=== PATIENT | male | born 1940 | race Caucasian/White ===

== ENCOUNTER → 2017-01-28 | Outpatient (CLI) | payer MEDICARE, BC ==
[~2017-01-28] MED LIST: REGADENOSON 0.4 MG/5 ML DISP.SYRIN. IV ONE
--- NOTE | 2017-01-28 15:50 | PCVCIMAG ---
APPROVED REPORT Exam: Nuclear Stress Test Indication: CAD Patient Location: Out-Patient Stress Nurse: Anna King RN, FLORENTIN Layton Tech:Susana TALA Whitmore Ht: 5 ft 8 in Wt: 195 lbs BSA: 2.02 m2 HR: 68 bpm BP: 160/75 mmHg BMI: 29.6 Rhythm: SR, INFERIOR T WAVE INVERSION Medical History Medical History: HTN, Hyperlipidemia, Diabetic Noninsulin, CAD Medications: Amlodipine, aspirin, atorvastatin, coreg, plavix, imdur, metformin, nitro SL, altace, ranexa Allergies: PCN, SULFA Cardiac Risk Factors: Age, Tobacco History (Former) Previous Cardiac Procedures: CABG, PCI Pretest Chest Pain Characteristics: No chest pain Exercise History: Indeterminate Meds Held (24 hrs): Coreg, Imdur, Nitro SL RI EXAM: Myocardial Perfusion REST/STRESS Imaging Protocol: Rest Tc-99m/Stress Tc-99m 1 day Resting Data Rest SPECT myocardial perfusion imaging was performed in supine position 45 minutes following the intravenous injection of 11 mCi of Tc-99m Sestamibi. Time of rest injection: 0855 Date: 01/28/2017 Pharmacologic Stress Pharmacologic stress test was performed by injecting Regadenoson 0.4 mg IV push followed by the intravenous injection of 35.1 mCi of Tc-99m Sestamibi. Time of stress injection: 1010 Date: 01/28/2017 Administration Route: IV Administration Site: Right AC Gated Stress SPECT was performed 45 minutes after stress injection. The images were gated to evaluate regional wall motion and calculate left ventricular ejection fraction. Study Quality Study: Good Study Data Post stress, the left ventricular ejection was 44%.. SSS: 22 SRS: 11 SDS: 12 TID = 1.00. Perfusion Large sized area of moderate reversible ischemia involving the mid/apical anterior/anteroseptal left ventricle consistent with a left anterior descending distribution. 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 Wall Motion Moderately decreased left ventricular systolic function. Nuclear Conclusion Large sized area of moderate reversible ischemia involving the mid/apical anterior/anteroseptal left ventricle consistent with a left anterior descending distribution. 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 Post stress, the left ventricular ejection was 44%.. No change since prior study dated September 2013. Interpreted by: Zelalem Mendoza MD Electronically Approved: 01/28/2017 15:27:10 Stress Test Details Stress Test: Pharmacologic stress was paired with low level exercise. Reason for pharmacologic stress test: Physical limitations. HR Resting HR: 68 bpmMax Heart Rate (APMHR): 144 bpm Max HR Achieved: 100 bpmTarget HR (85% APMHR): 122 bpm % of APMHR: 69 Recovery HR: 70 bpm BP Resting BP: 160/75 mmHg Max BP: 144/70 mmHg Recovery BP: 141/78 mmHg ECG Resting ECG: SR with inferior T wave inversion Stress ECG: SR with inferior T wave inversion Recovery ECG: SR with inferior T wave inversion Clinical Reason for Termination: Completed protocol Stress Symptoms: Leg Fatigue, Dyspnea, resolved during recovery Exercise duration: 4 min sec Exercise capacity: 1.6 METs
== END | disposition home or self-care (01) ==
LOC: PCVCIMAG 08:43
PROVIDERS: ATTEND Internal Medicine Cardiovascular Disease
DX: I25.10 Atherosclerotic heart disease of native coronary artery without angina pectoris (principal); I10 Essential (primary) hypertension; E11.9 Type 2 diabetes mellitus without complications; E78.2 Mixed hyperlipidemia; I65.23 Occlusion and stenosis of bilateral carotid arteries; Z90.49 Acquired absence of other specified parts of digestive tract; Z79.82 Long term (current) use of aspirin; Z79.84 Long term (current) use of oral hypoglycemic drugs; Z95.1 Presence of aortocoronary bypass graft; Z79.899 Other long term (current) drug therapy; Z95.5 Presence of coronary angioplasty implant and graft; Z88.0 Allergy status to penicillin; Z88.1 Allergy status to other antibiotic agents; Z87.891 Personal history of nicotine dependence
CPT/HCPCS: 78452; 80061; 93017; A9500; G0463; J2785; 93005

== ENCOUNTER → 2017-10-28 | Outpatient (CLI) | payer MEDICARE, BC | END | disposition home or self-care (01) | LOC: PCVCCLINIC 10:47 | DX: I25.709 Atherosclerosis of coronary artery bypass graft(s), unspecified, with unspecified angina pectoris (principal); I10 Essential (primary) hypertension; I25.5 Ischemic cardiomyopathy; E78.2 Mixed hyperlipidemia; I77.9 Disorder of arteries and arterioles, unspecified; E11.9 Type 2 diabetes mellitus without complications; R06.02 Shortness of breath; R94.31 Abnormal electrocardiogram [ECG] [EKG]; Z95.1 Presence of aortocoronary bypass graft; Z87.891 Personal history of nicotine dependence; Z79.899 Other long term (current) drug therapy; Z79.84 Long term (current) use of oral hypoglycemic drugs; Z79.82 Long term (current) use of aspirin; Z88.0 Allergy status to penicillin | CPT/HCPCS: 80061; 93005; G0463 ==

== ENCOUNTER → 2017-11-30 | Outpatient (CLI) | payer MEDICARE, BC ==
[~2017-11-30] MED LIST changes: +ASPIRIN 325 MG TABLET; +IV NORMAL SALINE 1000ML BAG 1,000 ML; +IV NORMAL SALINE 500ML BAG 500 ML; +NITROGLYCERIN SUBLINGUAL 0.4 MG BOTTLE OF 25. SL; +REGADENOSON 0.4 MG/5 ML DISP.SYRIN. IV; -REGADENOSON 0.4 MG/5 ML DISP.SYRIN. IV ONE
== END | disposition home or self-care (01) ==
LOC: PCVCIMAG 07:51
DX: I25.10 Atherosclerotic heart disease of native coronary artery without angina pectoris (principal); R07.9 Chest pain, unspecified; R06.00 Dyspnea, unspecified; E11.9 Type 2 diabetes mellitus without complications; Z95.1 Presence of aortocoronary bypass graft
CPT/HCPCS: 78452; 93017; A9500; J2785; J7030; J7040

== ENCOUNTER → 2018-03-09 | Outpatient (CLI) | payer MEDICARE, BC | END | disposition home or self-care (01) | LOC: PCVCCLINIC 14:10 | DX: I25.709 Atherosclerosis of coronary artery bypass graft(s), unspecified, with unspecified angina pectoris (principal); E11.9 Type 2 diabetes mellitus without complications; I25.5 Ischemic cardiomyopathy; I10 Essential (primary) hypertension; I77.9 Disorder of arteries and arterioles, unspecified; E78.00 Pure hypercholesterolemia, unspecified; R94.31 Abnormal electrocardiogram [ECG] [EKG]; Z95.1 Presence of aortocoronary bypass graft; Z88.0 Allergy status to penicillin; Z88.8 Allergy status to other drugs, medicaments and biological substances; Z87.891 Personal history of nicotine dependence; Z79.899 Other long term (current) drug therapy; Z79.82 Long term (current) use of aspirin | CPT/HCPCS: 80061; 93005; G0463 ==

== ENCOUNTER → 2019-01-17 | Outpatient (CLI) | payer MEDICARE, BC ==
--- NOTE | 2019-01-17 10:36 | PCVCIMAG ---
APPROVED REPORT Study performed: 01/17/2019 09:01:20 EXAM: Comprehensive 2D, Doppler, and color-flow Echocardiogram Patient Location: Echo lab Room #: 2Status: routine BSA: 2.02 HR: 55 bpmBP: 126/70 mmHg Rhythm: NSR Other Information Study Quality: Adequate Risk Factors: Cardiac Risk Factors: HTN, DM Indications Diabetes CAD Cardiomyopathy Fatigue Hypertension/HDD HX: CABG 1988, stents 2D Dimensions IVSd: 10.62 (7-11mm)LVOT Diam: 20.82 (18-24mm) LVDd: 62.33 mm PWd: 6.23 (7-11mm)Ascending Ao: 33.39 (22-36mm) LVDs: 52.51 (25-40mm) Left Atrium: 44.14 (27-40mm) Aortic Root: 29.70 mm LV Single Plane 4CH: 31.04 % LV Single Plane 2CH: 33.84 % Biplane EF: 33.4 % Volumes Left Atrial Volume (Systole) Single Plane 4CH: 61.17 mLSingle Plane 2CH: 66.02 mL Biplane LA Volume: 69.00 mLLA ESV Index: 34.00 mL/m2 Aortic Valve AoV Peak Elias.: 2.03 m/s AO Peak Gr.: 17.41 mmHgLVOT Max P.78 mmHg AO Mean Gr.: 9.53 mmHgLVOT Mean P.50 mmHg AO V2 Mean: 1.49 m/sLVOT Max V: 0.77 m/s AO V2 VTI: 46.79 cmLVOT Mean V: 0.59 m/s KALEIGH (VTI): 1.26 [id number] V1 VTI: 17.29 cm KALEIGH Vmax: 1.29 cm2 SV (LVOT): 58.86 mL Mitral Valve E/A Ratio: 1.1 MV Decel. Time: 196.45 ms MV E Max Elias.: 0.75 m/s MV A Elias.: 0.66 m/s IVRT: 103.81 ms TDI E/Lateral E': 12.50E/Medial E': 18.75 Medial E' Elias.: 0.04 m/s Lateral E' Elias.: 0.06 m/s Pulmonary Valve PV Peak Elias.: 0.85 m/sPV Peak Gr.: 2.91 mmHg Pulmonary Vein P Vein S: 0.40 m/sP Vein A: 0.21 m/s P Vein D: 0.37 m/sP Vein A Dur.: 65.7 msec P Vein S/D Ratio: 1.08 Tricuspid Valve TR Peak Elias.: 1.51 m/s TR Peak Gr.: 9.10 mmHg TV Vmax: 0.49 m/sPA Pressure: 16.00 mmHg Left Ventricle Left ventricle is moderately dilated. Paradoxical septal motion consistent with post-operative state. There is global hypokinesis of the left ventricle. Basal-mid inferior wall severe hypokinesis There is normal left ventricular wall thickness. Left ventricular systolic function is moderate to severely decreased. LVEF is 30-35%. Findings suggest the left atrial pressure is elevated. Right Ventricle The right ventricle is normal size. The right ventricular systolic function is normal. Atria Left atrium is at the upper limits of normal. The right atrium size is normal. Aortic Valve Aortic valve is trileaflet. Aortic valve leaflets are sclerotic with decreased leaflet excursion. No aortic regurgitation is present. Mild to moderate aortic stenosis. Highest mean aortic valve gradient is 9.5_mmHg. Peak aortic valve gradient is 16.5_mmHg. Calculated KALEIGH by the continuity equation is _1.4_cm2. Mitral Valve The mitral valve is normal in structure. There is no mitral valve regurgitation noted. No evidence of mitral valve stenosis. Tricuspid Valve The tricuspid valve is normal in structure. Trace tricuspid regurgitation with a normal PA pressure. Pulmonic Valve The pulmonary valve is normal in structure. Trace to mild pulmonic regurgitation. Great Vessels The aortic root is normal in size. IVC is not visualized. Pericardium There is no pericardial effusion. There is no pleural effusion. <Conclusion> Left ventricle is moderately dilated. Paradoxical septal motion consistent with post-operative state. There is global hypokinesis of the left ventricle. Basal-mid inferior wall severe hypokinesis Left ventricular systolic function is moderate to severely decreased. LVEF is 30-35%. Findings suggest the left atrial pressure is elevated. The right ventricle is normal size. Left atrium is at the upper limits of normal. Aortic valve is trileaflet. Aortic valve leaflets are sclerotic with decreased leaflet excursion. Mild to moderate aortic stenosis. Highest mean aortic valve gradient is 9.5_mmHg. Peak aortic valve gradient is 16.5_mmHg. Calculated KALEIGH by the continuity equation is _1.4_cm2. There is no mitral valve regurgitation noted. Trace tricuspid regurgitation with a normal PA pressure. The aortic root is normal in size. There is no pericardial effusion.
== END | disposition home or self-care (01) ==
LOC: PCVCIMAG 08:43
PROVIDERS: ATTEND Internal Medicine Cardiovascular Disease
DX: I25.10 Atherosclerotic heart disease of native coronary artery without angina pectoris (principal); E78.2 Mixed hyperlipidemia; I65.23 Occlusion and stenosis of bilateral carotid arteries; E11.49 Type 2 diabetes mellitus with other diabetic neurological complication; E11.65 Type 2 diabetes mellitus with hyperglycemia; I25.5 Ischemic cardiomyopathy; R53.83 Other fatigue; R07.89 Other chest pain; I10 Essential (primary) hypertension
CPT/HCPCS: 36415; 80061; 93005; 93306; G0463